=== PATIENT | male | born 1965 | race Two or more races ===

== ENCOUNTER 2023-03-31 11:34 | Emergency (ER) | payer OTHER, SELFPAY ==
[2023-03-31 12:00] VITALS: BP 129/61; PULSE 88; RESP 18; TEMP 36.6; O2SAT 93; BMI 31.0
--- NOTE | 2023-03-31 12:00 | ED_ITS ---
HPI - General Adult General Chief complaint: ETOH/Substance Use Stated complaint: Intoxicated Time Seen by Provider: 03/31/23 12:57 Related Data Allergies Allergy/AdvReac Type Severity Reaction Status Date / Time No Known Allergies Allergy Verified 03/31/23 11:59 [facility] Past Medical History Medical History (Updated 03/31/23 @ 13:20 by Clara Ng MD) Alcohol dependence Polysubstance abuse Social History Social History Alcohol intake: current Alcohol intake frequency: 3 or more drinks per day Smoked in Last 30 Days: Yes Use of substances other than those prescribed or required for medical reasons: Yes Substance Use Type: Crack/Cocaine, Heroin and Marijuana Advance Directives: No Advance Directives Information Provided: No Physical Exam ED Vital Signs: Vital Signs - 24 hr 03/31/23 12:00 03/31/23 12:05 03/31/23 14:00 Temperature 97.8 F Pulse Rate 88 68 93 Respiratory Rate 18 18 18 Blood Pressure 129/61 112/51 L 136/72 Pulse Oximetry 93 94 96 Oxygen Delivery Method Room Air Room Air Room Air BMI result Body Mass Index 31.0 Course Course Course Narrative: RME: 57yo M w/pmhx substance abuse c/o requesting detox from heroin, crack and ETOH. 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 Admits to hx withdrawal seizures denies SI/HI EKG, labs, LAZAR, care team consult, CIWA scale ordered Full HPI, ROS and PE to be performed by primary ED provider. Medical Decision Making Medical Decision Making MDM Narrative: -CARE evaluated pt, ok to dc, not bed available -patient was given information for outpatient follow-up and to set up his own appointments. Lab Data 03/31/23 12:22 03/31/23 12:22 Labs: Lab Results 03/31/23 03/31/23 03/31/23 Range/Units 12:22 12:22 12:22 WBC 7.3 (4.8-10.8) X10*3/uL RBC 3.71 L (4.60-5.80) X10*6/uL Hgb 12.5 L (14.0-18.0) g/dl Hct 35.7 L (42.0-52.0) % MCV 96.2 (80.0-98.0) fL MCH 33.7 H (27.0-33.0) pg MCHC 35.0 (31.0-36.0) g/dl RDW 12.9 (11.0-16.0) % Plt Count 138 L (160-400) X10*3/uL MPV 9.5 (9.4-12.4) fL Immature Gran % (Auto) 0.5 H (0.0-0.4) % Neut % (Auto) 47.1 (45-73) % Lymph % (Auto) 43.6 H (20-40) % [place] % (Auto) 7.0 (2-11) % Eos % (Auto) 1.5 (0-4) % Baso % (Auto) 0.3 (0-2) % Lymph # (Auto) 3.2 (1.2-4.9) X10*3/uL [place] # (Auto) 0.5 (0.1-1.2) X10*3/uL Eos # (Auto) 0.1 (0.0-0.4) X10*3/uL Baso # (Auto) 0.0 (0.0-0.2) X10*3/uL Abs Immat Gran (auto) 0.04 H (0.00-0.03) X10*3/uL Absolute Neuts (auto) 3.5 (2.0-8.3) x10*3/uL Absolute Nucleated RBC 0.000 (0.0-0.012) X10*3/uL Nucleated RBC % (auto) 0.0 (0.0-0.2) /100WBC Sodium 144 (135-145) mmol/L Potassium 3.5 (3.3-5.1) mmol/L Chloride 109 H (96-108) mmol/L Carbon Dioxide 24 (22-29) mmol/L Anion Gap 15 (12-20) BUN 15 (9-16) mg/dL Creatinine 0.94 (0.5-1.4) mg/dL Estim Creat Clear Calc 96.2 Estimated GFR > 60 Random Glucose 130 H (60-115) mg/dL Calcium 8.9 (8.4-10.2) mg/dL Magnesium 1.7 (1.6-2.6) mg/dL Total Bilirubin 0.9 (0.0-1.0) mg/dL Direct Bilirubin 0.3 (0.0-0.5) mg/dL AST 157 H (5-37) U/L ALT 105 H (0-40) U/L Alkaline Phosphatase 58 (39-117) U/L Total Protein 7.1 (6.5-8.0) g/dL Albumin 3.9 (3.5-5.0) g/dL Lipase 24 (8-78) U/L Ethyl Alcohol 306 H* mg/dL Discharge Plan Discharge Clinical Impression: Alcohol dependence, Polysubstance abuse Patient Disposition: Home, Self-Care Instructions: Polysubstance Abuse (ED) Additional Instructions: Please follow-up with your primary care physician tomorrow. If you have any worsening or new symptoms, please return to the emergency room or call 911
--- NOTE | 2023-03-31 12:02 | ECG_ITS ---
Test Reason : COCAINE Blood Pressure : / mmHG Vent. Rate : 086 BPM Atrial Rate : 086 BPM P-R Int : 156 ms QRS Dur : 094 ms QT Int : 376 ms P-R-T Axes : 063 018 032 degrees QTc Int : 449 ms Normal sinus rhythm Normal ECG No previous ECGs available Referred By: Sarah Young Electronically Signed By:ELIF GALEAS MD
[2023-03-31 12:05] VITALS: BP 112/51; PULSE 68; RESP 18; O2SAT 94
[2023-03-31 12:40] LABS: MANUAL DIFF FLAG NO
[2023-03-31 12:43] LABS: Basophils Percent Auto 0.3 % (0-2); Eosinophils Absolute Auto 0.1 X10*3/uL (0.0-0.4); Eosinophils Percent Auto 1.5 % (0-4); Hematocrit 35.7 % (42.0-52.0); Hemoglobin 12.5 g/dl (14.0-18.0); Imm Gran Abs Auto 0.04 X10*3/uL (0.00-0.03); Imm Gran Pct Auto 0.5 % (0.0-0.4); Lymphocytes Absolute Auto 3.2 X10*3/uL (1.2-4.9); Lymphocytes Percent Auto 43.6 % (20-40); Mean Corpuscular Hemoglobin 33.7 pg (27.0-33.0); Mean Corpuscular Volume 96.2 fL (80.0-98.0); Mean Platelet Volume 9.5 fL (9.4-12.4); Monocytes Absolute Auto 0.5 X10*3/uL (0.1-1.2); Neutrophils Absolute Auto 3.5 x10*3/uL (2.0-8.3); Neutrophils Percent Auto 47.1 % (45-73); Platelet Count 138 X10*3/uL (160-400); Red Blood Count 3.71 X10*6/uL (4.60-5.80); Red Cell Distribution Width 12.9 % (11.0-16.0); White Blood Count 7.3 X10*3/uL (4.8-10.8)
--- NOTE | 2023-03-31 12:49 | PC.NURSE ---
Alert and oriented, drank a large quantity of alcohol prior to arrival. has been on the run for 18 days, drinking heavily, smkoing pot, and doing cocaine and heroin. woke up in some hospital a few days ago with bruises all over his body. vss. Denies any cvhest pain or discomfort. States he is here because he wants to go to rehab.
[2023-03-31 12:58] LABS: Ethanol 306 mg/dL
[2023-03-31 13:00] LABS: Alanine Aminotransferase 105 U/L (0-40); Albumin Level 3.9 g/dL (3.5-5.0); Alkaline Phosphatase 58 U/L (39-117); Anion Gap 15 (12-20); Aspartate Amino Transferase 157 U/L (5-37); Bilirubin Direct 0.3 mg/dL (0.0-0.5); Bilirubin Total 0.9 mg/dL (0.0-1.0); Blood Urea Nitrogen 15 mg/dL (9-16); Calcium 8.9 mg/dL (8.4-10.2); Carbon Dioxide 24 mmol/L (22-29); Chloride 109 mmol/L (96-108); Creatinine Clr Calc Pharmacy 96.2; Estimated Glomerular Filt Rate > 60; Glucose Random 130 mg/dL (60-115); Lipase 24 U/L (8-78); Magnesium 1.7 mg/dL (1.6-2.6); Potassium 3.5 mmol/L (3.3-5.1); Sodium 144 mmol/L (135-145); Total Protein 7.1 g/dL (6.5-8.0)
--- NOTE | 2023-03-31 13:14 | ED_ITS ---
HPI - Alcohol General Chief Complaint: ETOH/Substance Use Stated Complaint: Intoxicated Time Seen by Provider: 03/31/23 12:57 Source: patient Mode of arrival: ambulatory Limitations: no limitations History of Present Illness HPI narrative: Patient comes to emergency room seeking help/detox. Patient states that he drinks 3 pt daily, drank alcohol prior to arriving to the hospital, states that he uses at least 4 bags of heroin every day, smokes crack. Denies suicidal or homicidal ideation. Related Data Allergies Allergy/AdvReac Type Severity Reaction Status Date / Time No Known Allergies Allergy Verified 03/31/23 11:59 Review of Systems Review of Systems: Constitutional : No Weight loss, No Fever, No Chills, No Night Sweats, No Fatigue, No Malaise ENT/Mouth : No Hearing loss, No Ear Pain, No Nasal Congestion, No Sinus Pain, No Hoarseness, No sore throat, No Rhinorrhea, No Swallowing Difficulty Eyes: No Eye Pain, No Swelling, No Redness, No Foreign Body, No Discharge, No Vision Changes Cardiovascular : No Chest Pain, No SOB, No Dyspnea on Exertion, No Orthopnea, No Edema, No Palpitations Respiratory : No Cough, No Sputum, No Wheezing, No Smoke Exposure, No Dyspnea Gastrointestinal : No Nausea, No Vomiting, No Diarrhea, No Constipation, No abdo aubrie Pain, No Hematochezia, No Melena Genitourinary : no irregular bleeding, No Dysuria, No Urinary Frequency, No Hematuria, No Urinary Incontinence, No Urgency, No Flank Pain, No Urinary Flow Changes, No Hesitancy Musculoskeletal : No joint pain, No Myalgias, No Joint Swelling Skin : No Skin Lesions, No rash Neuro : No Weakness, No Numbness, No Paresthesias, No Loss of Consciousness, No Dizziness, No Headache Psych : No Anxiety/Panic, No Depression, No SI/HI/AH/VH, admits using drugs and drinking alcohol, seeking detox Heme/Lymph: No Bruising, No Bleeding,No Lymphadenopathy Endocrine : No Polyuria, No Polydipsia, No Temperature Intolerance [facility] Past Medical History Medical History (Updated 03/31/23 @ 13:20 by Clara Ng MD) Alcohol dependence Polysubstance abuse Social History Social History Alcohol intake: current Alcohol intake frequency: 3 or more drinks per day Smoked in Last 30 Days: Yes Use of substances other than those prescribed or required for medical reasons: Yes Substance Use Type: Crack/Cocaine, Heroin and Marijuana Advance Directives: No Advance Directives Information Provided: No Physical Exam ED Vital Signs: Vital Signs - 24 hr 03/31/23 12:00 03/31/23 12:05 Temperature 97.8 F Pulse Rate 88 68 Respiratory Rate 18 18 Blood Pressure 129/61 112/51 L Pulse Oximetry 93 94 Oxygen Delivery Method Room Air Room Air BMI result Body Mass Index 31.0 Const Other: Appearance: Alert. Oriented X3. No acute distress. Coherent Eyes: Pupils equal, round and reactive to light. ENT: Pharynx normal. Neck: Normal inspection. Neck supple. No lymph nodes noted. No crepitus CVS: Normal heart rate and rhythm. Pulses normal. Normal S1 and S2 Respiratory: No respiratory distress. Breath sounds normal. No Wheezing. No rales Abdomen: Soft and nontender. No rigidity. No distention. Skin: Skin warm and dry. Normal skin color. Normal skin turgor. Extremities: No lower extremity edema. No Lacerations. No Rash Neuro: Oriented X 3. No motor deficit. No sensory deficit. Moving all extremities. Slightly slurred speech, intoxicated. CN 2 through 12 grossly intact Psych: calm, cooperative, normal affect Medical Decision Making Medical Decision Making MDM Narrative: -patient's labs at baseline -ETOH level 306 -urine toxicology pending -not on a Section 12, patient is not suicidal or homicidal -care team consult pending -physician observation started at 13:15 Lab Data 03/31/23 12:22 03/31/23 12:22 Labs: Lab Results 03/31/23 03/31/23 03/31/23 Range/Units 12:22 12:22 12:22 WBC 7.3 (4.8-10.8) X10*3/uL RBC 3.71 L (4.60-5.80) X10*6/uL Hgb 12.5 L (14.0-18.0) g/dl Hct 35.7 L (42.0-52.0) % MCV 96.2 (80.0-98.0) fL MCH 33.7 H (27.0-33.0) pg MCHC 35.0 (31.0-36.0) g/dl RDW 12.9 (11.0-16.0) % Plt Count 138 L (160-400) X10*3/uL MPV 9.5 (9.4-12.4) fL Immature Gran % (Auto) 0.5 H (0.0-0.4) % Neut % (Auto) 47.1 (45-73) % Lymph % (Auto) 43.6 H (20-40) % [place] % (Auto) 7.0 (2-11) % Eos % (Auto) 1.5 (0-4) % Baso % (Auto) 0.3 (0-2) % Lymph # (Auto) 3.2 (1.2-4.9) X10*3/uL [place] # (Auto) 0.5 (0.1-1.2) X10*3/uL Eos # (Auto) 0.1 (0.0-0.4) X10*3/uL Baso # (Auto) 0.0 (0.0-0.2) X10*3/uL Abs Immat Gran (auto) 0.04 H (0.00-0.03) X10*3/uL Absolute Neuts (auto) 3.5 (2.0-8.3) x10*3/uL Absolute Nucleated RBC 0.000 (0.0-0.012) X10*3/uL Nucleated RBC % (auto) 0.0 (0.0-0.2) /100WBC Sodium 144 (135-145) mmol/L Potassium 3.5 (3.3-5.1) mmol/L Chloride 109 H (96-108) mmol/L Carbon Dioxide 24 (22-29) mmol/L Anion Gap 15 (12-20) BUN 15 (9-16) mg/dL Creatinine 0.94 (0.5-1.4) mg/dL Estim Creat Clear Calc 96.2 Estimated GFR > 60 Random Glucose 130 H (60-115) mg/dL Calcium 8.9 (8.4-10.2) mg/dL Magnesium 1.7 (1.6-2.6) mg/dL Total Bilirubin 0.9 (0.0-1.0) mg/dL Direct Bilirubin 0.3 (0.0-0.5) mg/dL AST 157 H (5-37) U/L ALT 105 H (0-40) U/L Alkaline Phosphatase 58 (39-117) U/L Total Protein 7.1 (6.5-8.0) g/dL Albumin 3.9 (3.5-5.0) g/dL Lipase 24 (8-78) U/L Ethyl Alcohol 306 H* mg/dL Discharge Plan Discharge Clinical Impression: Alcohol dependence, Polysubstance abuse Patient Disposition: Still a Patient
--- NOTE | 2023-03-31 13:38 | PC.NURSE ---
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
--- NOTE | 2023-03-31 13:55 | MHC.RECOVSUP ---
Met with pt in ED18 who is here for KATELYN. Pt was agitated upon meeting saying he doesn't understand why he was brought here and why we wont give him a bed. T/W explained to pt that we are not a detox but if he was medically admitted he would detox here, otherwise we would look for detoxes to send him. Pt has a history of alcohol, opiate, and cocaine use. At this time there are no ATS beds available and pt was provided resources and contacts to follow up from the community. bed search exhausted provider is aware.
[2023-03-31 14:00] VITALS: BP 136/72; PULSE 93; RESP 18; O2SAT 96
--- NOTE | 2023-03-31 14:08 | PC.NURSE ---
Alert but requires re-direction.walking out of room stating he is going to [place]. Able to be easily re-directed back to room.
--- NOTE | 2023-03-31 14:42 | PC.NURSE ---
Medically cleared at this time. Patients power and recovery superintendent coming to pick patient up .
--- NOTE | 2023-03-31 14:50 | PC.NURSE ---
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 Accepted into [facility] for detox. To be trasnported by Segundo his men's basketball coach.
--- NOTE | 2023-03-31 15:02 | MHC.RECOVSUP ---
[facility] Had an opening and called for a phone intake. Pt completed phone intake and ANNIA Raymond is taking pt to [facility].
== END 2023-03-31 14:49 | disposition home or self-care (01) ==
PROVIDERS: Physician Assistant; Emergency Provider Emergency Medicine; PCP Internal Medicine Infectious Disease
DX: F10.229 Alcohol dependence with intoxication, unspecified (principal); Y90.8 Blood alcohol level of 240 mg/100 ml or more; F14.10 Cocaine abuse, uncomplicated; Z79.899 Other long term (current) drug therapy
CPT/HCPCS: 36415; 80048; 80076; 80307; 83690; 83735; 85025; 93005; 99284; 99285

== ENCOUNTER 2024-01-20 15:44 | Emergency (ER) | payer OTHER, SELFPAY ==
[2024-01-20 16:07] VITALS: BP 129/69; PULSE 96; RESP 18; TEMP 36.4; O2SAT 97; BMI 28.5
--- NOTE | 2024-01-20 16:13 | ED.PSYCH ---
HPI - Psych General Chief Complaint: Psychiatric Symptoms Stated Complaint: crisis Time Seen by Provider: 01/20/24 16:12 Source: patient Mode of arrival: ambulatory Limitations: no limitations History of Present Illness HPI Narrative: Patient with history of depression been feeling depressed lately denies any SI or HI patient's alcoholic patient was at [facility] few weeks ago after overdose was sent for inpatient psych admission but was not admitted. Patient has been homeless for last 6 months increased stress feel depressed drinking heavily lately to feel better. Last drink was earlier today patient does have alcohol withdrawal seizure patient was seen as outpatient has a bed in [facility] Related Data Home Medications Medication Instructions Recorded Confirmed bictegravir 50 mg-emtricitabine 1 tab PO DAILY 01/20/24 01/20/24 200 mg-tenofovir alafenam 25 mg tablet (Biktarvy) clonidine HCl 0.1 mg tablet 0.1 mg PO DAILY 01/20/24 01/20/24 folic acid 1 mg tablet 1 mg PO DAILY 01/20/24 01/20/24 gabapentin 300 mg capsule 300 mg PO TID 01/20/24 01/20/24 hydroxyzine HCl 25 mg tablet 25 mg PO QID 01/20/24 01/20/24 Allergies Allergy/AdvReac Type Severity Reaction Status Date / Time No Known Allergies Allergy Verified 03/31/23 11:59 Review of Systems Review of Systems: Yes all other systems are reviewed and are negative [facility] Past Medical History Medical History Narcotic abuse in remission HIV (human immunodeficiency virus infection) Depression Alcohol dependence Polysubstance abuse Social History Social History Alcohol intake: current Alcohol intake frequency: 3 or more drinks per day Alcohol type: hard liquor Smoked in Last 30 Days: Yes Use of substances other than those prescribed or required for medical reasons: Yes Substance Use Type: Crack/Cocaine Advance Directives: No Advance Directives Information Provided: Yes Physical Exam Vital Signs: Vital Signs: Last Vital Signs Temp 97.5 F 01/20/24 16:07 Pulse 96 01/20/24 16:07 Resp 18 01/20/24 16:07 BP 129/69 01/20/24 16:07 Pulse Ox 97 01/20/24 16:07 BMI result Body Mass Index 28.5 Appearance: Alert. Oriented X3. No acute distress. etoh++ Eyes: PERRLA, No Nystagmus ENT: Pharynx normal. Oral Mucosa moist Neck: Normal inspection. Neck supple. CVS: Normal heart rate and rhythm. Pulses normal. Respiratory: No respiratory distress. Equal air entry bilateral, no wheezing/rales/rhonchi Abdomen: Soft and nontender. Bowel sounds are present, no mass palpable, no CVA tenderness Skin: Skin warm and dry. Normal skin color. Normal skin turgor. Extremities: No lower extremity edema. No calf tenderness psych: Depressed denies SI/HI no hallucination /delusion Neuro: Oriented X 3. No motor deficit. No sensory deficit.No cerebellar signs , cranial nerves II-XII intact Medications Administered Generic Name Dose Route Start Last Admin Trade Name Freq PRN Reason Stop Dose Admin Lorazepam 2 mg 01/20/24 16:24 01/20/24 16:38 Lorazepam 1 Mg Tablet PO 2 mg RQ4H WHILE AWAKE PRN Administration Alcohol Withdrawal Medical Decision Making Lab Data [facility] Lab Attestation statement: I reviewed the patient's lab results. 01/20/24 16:56 01/20/24 16:56 Labs: Lab Results 01/20/24 01/20/24 Range/Units 16:29 16:56 WBC 7.7 (4.8-10.8) X10*3/uL RBC 3.75 L (4.60-5.80) X10*6/uL Hgb 12.4 L (14.0-18.0) g/dl Hct 36.1 L (42.0-52.0) % MCV 96.3 (80.0-98.0) fL MCH 33.1 H (27.0-33.0) pg MCHC 34.3 (31.0-36.0) g/dl RDW 12.0 (11.0-16.0) % Plt Count 205 D (160-400) X10*3/uL MPV 9.1 L (9.4-12.4) fL Immature Gran % (Auto) 0.4 (0.0-0.4) % Neut % (Auto) 49.8 (45-73) % Lymph % (Auto) 40.1 H (20-40) % [place] % (Auto) 7.6 (2-11) % Eos % (Auto) 1.6 (0-4) % Baso % (Auto) 0.5 (0-2) % Lymph # (Auto) 3.1 (1.2-4.9) X10*3/uL [place] # (Auto) 0.6 (0.1-1.2) X10*3/uL Eos # (Auto) 0.1 (0.0-0.4) X10*3/uL Baso # (Auto) 0.0 (0.0-0.2) X10*3/uL Abs Immat Gran (auto) 0.03 (0.00-0.03) X10*3/uL Absolute Neuts (auto) 3.8 (2.0-8.3) x10*3/uL Absolute Nucleated RBC 0.000 (0.0-0.012) X10*3/uL Nucleated RBC % (auto) 0.0 (0.0-0.2) /100WBC Sodium 142 (135-145) mmol/L Potassium 4.1 (3.3-5.1) mmol/L Chloride 115 H (96-108) mmol/L Carbon Dioxide 19 L (22-29) mmol/L Anion Gap 12 (12-20) BUN 11 (9-16) mg/dL Creatinine 0.99 (0.5-1.4) mg/dL Estim Creat Clear Calc 95.0 Estimated GFR > 60 Random Glucose 116 H (60-115) mg/dL Calcium 9.2 (8.4-10.2) mg/dL Magnesium 1.9 (1.6-2.6) mg/dL Total Bilirubin 0.4 (0.0-1.0) mg/dL AST 27 (5-37) U/L ALT 37 (0-40) U/L Alkaline Phosphatase 47 (39-117) U/L Total Protein 7.3 (6.5-8.0) g/dL Albumin 3.9 (3.5-5.0) g/dL Urine Color Yellow Urine Appearance Clear Urine pH 5.5 (5.0-9.0) Ur Specific [place] 1.010 (1.005-1.025) Urine Protein Negative (Neg-Trace) mg/dL Urine Glucose (UA) Negative (Negative) mg/dL Urine Ketones Negative (Negative) mg/dL Urine Blood Negative (Negative) Urine Nitrite Negative (Negative) Ur Leukocyte Esterase Negative (Negative) Urine Opiates Screen Not Detected (Not Detect) Urine Fentanyl Screen Not Detected (Not Detect) Ur Barbiturates Screen Not Detected (Not Detect) Ur Phencyclidine Scrn Not Detected (Not Detect) Ur Amphetamines Screen Not Detected (Not Detect) U Benzodiazepines Scrn POSITIVE H (Not Detect) Urine Cocaine Screen Not Detected (Not Detect) U Marijuana (THC) Screen Not Detected (Not Detect) Ethyl Alcohol 124 mg/dL Discharge Plan Discharge Clinical Impression: Depression, Alcohol abuse Patient Disposition: Xfer Psychiatric Hosp Transfer Details: Medically cleared to be admitted as an inpatient psych hospital Prescriptions: No Action clonidine HCl 0.1 mg tablet 0.1 mg PO DAILY gabapentin 300 mg capsule 300 mg PO TID folic acid 1 mg tablet 1 mg PO DAILY hydroxyzine HCl 25 mg tablet 25 mg PO QID Biktarvy 50-200-25 mg tablet 1 tab PO DAILY Interventions: [place]-Suicide Risk Severity Scale Last Done: 01/20/24 16:11
--- NOTE | 2024-01-20 16:33 | MHC.CARE ---
Building Illuminating Engineer, Segundo Flood, brought patient to the ED from [facility] [place] where he was evaluated and determined to need inpatient psychiatric care. They secured a placement at [facility], however, patient needed medical clearance due to alcohol use. By report, patient has a history of withdrawal seizures. CARE Team spoke to Lakeshia at [facility], she stated they are expecting patient following medical clearance and intake Xiomara [phone] is aware of the plan.
[2024-01-20 16:38] LABS: Appearance Urine Clear; Color Urine Yellow; Glucose Urine UA Negative (Negative); Leukocyte Esterase Urine Negative (Negative); Nitrite Urine Negative (Negative); PH 5.5 (5.0-9.0); Urine Blood Negative (Negative); Urine Ketones Negative (Negative); Urine Protein Negative (Neg-Trace)
[2024-01-20] MEDS: LORazepam 1 MG TABLET 2 MG PO (16:38)
--- NOTE | 2024-01-20 16:38 | PC.NURSE ---
pt reports anxiety. per Dr Wilson, give 2mg ativan ordered prn.
[2024-01-20 16:43] LABS: Amphetamine Screen Urine Not Detected (Not Detect); Barbiturates, Urine Not Detected (Not Detect); Benzodiazepines Screen Urine POSITIVE (Not Detect); Cannabinoid Screen Urine Not Detected (Not Detect); Cocaine Screen Urine Not Detected (Not Detect); Fentanyl, urine Not Detected (Not Detect); Opiate Screen Urine Not Detected (Not Detect); Phencyclidine Screen Urine Not Detected (Not Detect)
[2024-01-20 17:02] LABS: MANUAL DIFF FLAG NO
[2024-01-20 17:05] LABS: Basophils Percent Auto 0.5 % (0-2); Eosinophils Absolute Auto 0.1 X10*3/uL (0.0-0.4); Eosinophils Percent Auto 1.6 % (0-4); Hematocrit 36.1 % (42.0-52.0); Hemoglobin 12.4 g/dl (14.0-18.0); Imm Gran Abs Auto 0.03 X10*3/uL (0.00-0.03); Imm Gran Pct Auto 0.4 % (0.0-0.4); Lymphocytes Absolute Auto 3.1 X10*3/uL (1.2-4.9); Lymphocytes Percent Auto 40.1 % (20-40); Mean Corpuscular HGB Conc 34.3 g/dl (31.0-36.0); Mean Corpuscular Hemoglobin 33.1 pg (27.0-33.0); Mean Corpuscular Volume 96.3 fL (80.0-98.0); Mean Platelet Volume 9.1 fL (9.4-12.4); Monocytes Absolute Auto 0.6 X10*3/uL (0.1-1.2); Monocytes Percent Auto 7.6 % (2-11); Neutrophils Absolute Auto 3.8 x10*3/uL (2.0-8.3); Neutrophils Percent Auto 49.8 % (45-73); Platelet Count 205 X10*3/uL (160-400); Red Blood Count 3.75 X10*6/uL (4.60-5.80); White Blood Count 7.7 X10*3/uL (4.8-10.8)
[2024-01-20 17:25] LABS: Alanine Aminotransferase 37 U/L (0-40); Albumin Level 3.9 g/dL (3.5-5.0); Alkaline Phosphatase 47 U/L (39-117); Anion Gap 12 (12-20); Aspartate Amino Transferase 27 U/L (5-37); Bilirubin Total 0.4 mg/dL (0.0-1.0); Blood Urea Nitrogen 11 mg/dL (9-16); Calcium 9.2 mg/dL (8.4-10.2); Carbon Dioxide 19 mmol/L (22-29); Chloride 115 mmol/L (96-108); Estimated Glomerular Filt Rate > 60; Ethanol 124 mg/dL; Glucose Random 116 mg/dL (60-115); Magnesium 1.9 mg/dL (1.6-2.6); Potassium 4.1 mmol/L (3.3-5.1); Sodium 142 mmol/L (135-145); Total Protein 7.3 g/dL (6.5-8.0)
--- NOTE | 2024-01-20 18:13 | MHC.CARE ---
Patient has been accepted to [facility] Accepting physician: Dr. Andria Pink Address of facility: [address] [place] [address], [id number] Diagnosis: Unspecified depressive disorder/ Alcohol use disorder Section 12 was completed and given to the ED attending physician to sign ETA was determined during nurse to nurse
[2024-01-20 18:18] LABS: COVID-19 Test Negative (Negative); IDNOW Serial# 08D9AD1C
[2024-01-20 20:17] VITALS: BP 147/79; PULSE 83; RESP 16; TEMP 36.6; O2SAT 96
== END 2024-01-20 20:21 ==
PROVIDERS: Emergency Provider Internal Medicine; PCP Internal Medicine Infectious Disease
DX: F33.9 Major depressive disorder, recurrent, unspecified (principal); F10.10 Alcohol abuse, uncomplicated; Z21 Asymptomatic human immunodeficiency virus [HIV] infection status; Z59.02 Unsheltered homelessness; Z11.52 Encounter for screening for COVID-19
CPT/HCPCS: 36415; 80053; 80307; 81003; 83735; 85025; 87635; 99285